=== PATIENT | female | born 1950 | race Caucasian/White ===

== ENCOUNTER 2016-09-23 10:29 | Outpatient (CLI) | payer OTHER ==
[~2016-09-23 10:29] MED LIST: FEVERFEW380 MG; IBUPROFEN400 MG PO; METOPROLOL TART25 MG PO; OMEPRAZOLE40 MG PO; PERCOCET1 TA1 PO; PROAIR HFA IN; RANITIDINE ACID75 MG PO; VALERIAN500 MG; VISTARIL25 MG PO; VITAMIN D-31000 UNIT PO
--- NOTE | 2016-09-25 08:20 | DIAGNOSTIC IMAGING REPORT ---
PROCEDURE: 2-D M-mode echo Doppler technique CLINICAL INDICATION: Palpitations TECHNIQUE: Standard 2-D M-mode echo Doppler technique COMPARISON: None available FINDINGS: The aortic valve is normal the mitral valve exhibits 1+ to 2+ MR no stenosis seen the tricuspid valve exhibits 2+ TR with RVSP 34 pulmonic valve shows 1+ PI mild left atrial and right atrial enlargement is present LVH present LV contractility is preserved ejection fraction 67% grade 1 diastolic dysfunction present right ventricular size and function is normal. No abnormalities of the aortic order pericardium present. IMPRESSION: 1+ 2+ MR 2+ TR with RVSP 34 1+ PI Mild left atrial and right atrial enlargement LVH Left ventricular ejection fraction 67% with normal contraction Grade 1 diastolic dysfunction
== END 2016-09-23 23:00 ==
LOC: US SRH 10:29
DX: I08.1 Rheumatic disorders of both mitral and tricuspid valves (principal)

== ENCOUNTER 2016-10-02 14:57 | Outpatient (CLI) | payer OTHER | END 2016-10-02 23:00 | LOC: RT SRH 14:57 | DX: R00.2 Palpitations (principal) ==